=== PATIENT | male | born 1975 | race Caucasian/White ===

== ENCOUNTER 2016-06-12 05:49 | Day surgery (SDC) | payer BC ==
[~2016-06-12 05:49] MED LIST: SUDAFED30 M2 PO; ZYRTEC10 M7 PO
== END 2016-06-12 16:20 ==
LOC: SRG 05:49 → SHSB 05:55 → ORW 07:24 → PACU 10:13 → SHSB 11:25
PROC: 0WUF4JZ Supplement Abdominal Wall with Synthetic Substitute, Percutaneous Endoscopic Approach (ICD-10-PCS; principal; 2016-06-12)
PROC: 8E0W4CZ Robotic Assisted Procedure of Trunk Region, Percutaneous Endoscopic Approach (ICD-10-PCS; 2016-06-12)
DX: K43.0 Incisional hernia with obstruction, without gangrene (principal); F41.9 Anxiety disorder, unspecified; Z98.890 Other specified postprocedural states
CPT/HCPCS: C1781; J0690; J1170